=== PATIENT | male | born 1965 | race Two or more races ===

== ENCOUNTER 2018-09-05 08:30 | Day surgery (SDC) | payer OTHER ==
[2018-09-04 13:51] VITALS: BMI 31.8
[2018-09-05 10:16] VITALS: TEMP 97.5
[2018-09-05 11:04] VITALS: BP 116/77; PULSE 68
--- NOTE | 2018-09-06 15:01 | PATH ---
Surgical Pathology Report Patient Name: RHONDA RICE [facility]. Rec. #: [id number] /Age/Gender: 1965 (Age: 53) / M Account: [id number] Location: U-ENDOSCOPY Taken: 09/05/2018 Received: 09/05/2018 Reported: 09/06/2018 Physicians: Jeet Hopper D.O. Specimen(s) Received A: BX BODY OF STOMACH EROSION B: BX ANTRUM AND BODY Clinical History GERD Postoperative diagnosis: Gastritis Final Diagnosis A. STOMACH, BODY, BIOPSY: GASTRIC BODY MUCOSA WITH SEVERE CHRONIC ACTIVE GASTRITIS AND INTESTINAL METAPLASIA. IMMUNOHISTOCHEMICAL STAIN FOR H. PYLORI IS POSITIVE (MANY). B. STOMACH, ANTRUM/BODY, BIOPSY: GASTRIC ANTRAL AND BODY MUCOSA WITH SEVERE CHRONIC ACTIVE GASTRITIS. IMMUNOHISTOCHEMICAL STAIN FOR H. PYLORI IS POSITIVE ([place]Y). Electronically Signed Winifred Jensen M.D. Gross Description A. Received in formalin, labeled "biopsy erosion body of stomach" are 2 up, irregular portions of soft tissue measuring 0.3 and 0.5 cm. in greatest dimension. The specimens are submitted in toto in one cassette. B. Received in formalin, labeled "biopsy antrum/body" are 3 up, irregular portions of soft tissue ranging from 0.2-0.3 cm. in greatest dimension. The specimens are submitted in toto in one cassette. 09/05/201809/05/2018
== END 2018-09-05 11:11 | disposition home or self-care (01) ==
LOC: JASU-ENDO 08:30
PROVIDERS: ATTEND Internal Medicine Gastroenterology
PROC: 0DB68ZX Excision of Stomach, Via Natural or Artificial Opening Endoscopic, Diagnostic (ICD-10-PCS; principal; 2018-09-05 10:45)
DX: K29.70 Gastritis, unspecified, without bleeding (principal); K25.9 Gastric ulcer, unspecified as acute or chronic, without hemorrhage or perforation
CPT/HCPCS: 88305-TC; 88342-TC

== ENCOUNTER 2018-09-12 08:22 | Day surgery (SDC) | payer OTHER ==
[2018-09-12 09:13] VITALS: BMI 32.3
[2018-09-12 10:09] VITALS: TEMP 97.5
[2018-09-12 10:10] VITALS: PULSE 55
[2018-09-12 12:34] VITALS: BP 132/84
== END 2018-09-12 10:40 | disposition home or self-care (01) ==
LOC: JOR 08:22 → JASU-ENDO 08:22
PROVIDERS: ATTEND Internal Medicine Gastroenterology
PROC: 0DJD8ZZ Inspection of Lower Intestinal Tract, Via Natural or Artificial Opening Endoscopic (ICD-10-PCS; principal; 2018-09-12 10:15)
DX: Z51.11 Encounter for antineoplastic chemotherapy (principal); K57.30 Diverticulosis of large intestine without perforation or abscess without bleeding; K64.8 Other hemorrhoids